=== PATIENT | female | born 1995 | race Caucasian/White ===

== ENCOUNTER 2019-05-02 22:04 | Emergency (ER) | payer OTHER ==
[~2019-05-02] VITALS: Ht 167.6 cm; Wt 67.1 kg
--- NOTE | 2019-05-02 22:19 | NUR ---
BENJI SANDERS at bedside for MSE.
--- NOTE | 2019-05-02 22:19 | NUR ---
PATIENT ARRIVED AT THE ER WITH C/O INTERMITTENT LLQ RADIATING TO RUQ ABDOMINAL PAIN X1 WEEK WITH NAUSEA AND DIARRHEA 2 DAYS AGO. DENIES ANY VOMITTING. PATIENT WITH HISTORY OF OVARIAN CYST, LOCATION UNKNOWN. PATIENT AAOX4. NAD. NO CARDIOVASCULAR CONCERN. BED ON LOCK POSITION. FALL PRECAUTION PER PROTOCOL.
[2019-05-02] MEDS ORDERED: ONDANSETRON 4 MG/2 ML VIAL ONE (22:30)
[2019-05-02] MEDS ORDERED: IV NORMAL SALINE 1000 ML BAG IV ONE (22:30)
[2019-05-02] MEDS ORDERED: ONDANSETRON 4 MG/2 ML VIAL IV ONE (22:30)
[2019-05-02] MEDS ORDERED: HYDROMORPHONE 1 MG/1 ML DISP.SYRIN IV ONE ×2 (22:30→23:30)
[2019-05-02] MEDS ORDERED: HYDROMORPHONE 1 MG/1 ML DISP.SYRIN ONE ×2 (22:30→23:39)
[2019-05-02 22:44] LABS: BASOPHILS # (AUTO) 0.1 K/uL (0.0-8.0); BASOPHILS % (AUTO) 0.9 % (0.0-2.0); EOSINOPHILS # (AUTO) 0.2 K/uL (0.0-0.7); EOSINOPHILS % (AUTO) 2.4 % (0.0-7.0); HEMATOCRIT 41.2 % (31.2-41.9); HEMOGLOBIN 13.5 g/dL (10.9-14.3); LYMPHOCYTES # (AUTO) 2.7 K/uL (20.0-40.0); LYMPHOCYTES % (AUTO) 39.7 % (20.5-51.5); MEAN CORPUSCULAR HEMOGLOBIN 28.4 uug (24.7-32.8); MEAN CORPUSCULAR HGB CONC 33 g/dL (32.3-35.6); MEAN CORPUSCULAR VOLUME 86.8 fL (75.5-95.3); MONOCYTES # (AUTO) 0.5 K/uL (2.0-10.0); MONOCYTES % (AUTO) 8.2 % (0.0-11.0); NEUTROPHILS # (AUTO) 3.3 K/uL (1.8-8.9); NEUTROPHILS % (AUTO) 48.8 % (38.5-71.5); PLATELET COUNT (AUTO) 234 K/uL (179-408); RED BLOOD CELL COUNT(AUTO) 4.74 MIL/uL (3.63-4.92); WHITE BLOOD COUNT (AUTO) 6.7 K/uL (3.8-11.8)
[2019-05-02 22:45] LABS: *BILIRUBIN,URIN NEGATIVE (NEGATIVE); *BLOOD, URINE NEGATIVE (NEGATIVE); *COLOR,URINE YELLOW (YELLOW); *KETONES,URINE TRACE (NEGATIVE); *UROBILINOGEN,URINE 0.2 E.U./dl (NORMAL); LEUKOCYTE ESTERASE ,URINE 1+ (NEGATIVE); NITRITE, URINE NEGATIVE (NEGATIVE); PH,URINE 5.5 (5.0-8.0); UGLUCOSE NEGATIVE (NEGATIVE)
[2019-05-02 22:48] LABS: *CLARITY,URINE HAZY (CLEAR)
[2019-05-02 22:54] LABS: BILIRUBIN,DIRECT 0.1 mg/dL (0.0-0.2); BILIRUBIN,TOTAL 0.5 mg/dL (0.2-1.0); POTASSIUM 4.1 mmol/L (3.5-5.1); TOTAL PROTEIN, SERUM 8.3 g/dL (6.4-8.2)
[2019-05-02 22:58] LABS: RBC,URINE 0-3 /HPF (0-3)
[2019-05-02 22:59] LABS: BACTERIA,URINE MODERATE /HPF (NONE SEEN)
[2019-05-02 23:00] LABS: SQUAMOUS EPITHELIAL CELL,UR FEW /HPF (NONE SEEN)
[2019-05-02] MEDS ORDERED: NITROFURANTOIN/NITROFURAN MAC 100 MG CAPSULE PO ONE (23:30)
[2019-05-02] MEDS ORDERED: NITROFURANTOIN/NITROFURAN MAC 100 MG CAPSULE ONE (23:39)
--- NOTE | 2019-05-02 23:49 | NUR ---
Back to ER from CT.
--- NOTE | 2019-05-03 00:21 | NUR ---
PATIENT AAOX4. IN NO ACUTE DISTRESS. PAIN ON ABDOMINAL AREA TOLERABLE AT THIS TIME PER PATIENT. DENIES ANY NAUSEA. CONTINUE TO MONITOR.
--- NOTE | 2019-05-03 00:26 | NUR ---
BENJI SANDERS AT BEDSIDE.
--- NOTE | 2019-05-03 00:26 | NUR ---
TELEPHONE CALL TO [facility], SPOKE TO BRODIE TO FOLLOW UP ON CT RESULT.
[2019-05-03 00:43] VITALS: BP 100/76
--- NOTE | 2019-05-03 00:45 | NUR ---
Patient discharged to home in stable conditon. Written and verbal after care instructions given. Patient verbalizes understanding of instructions. IV discontinued. Name tag removed. Patient ambulated out of ER with steady gait. All belongings with patient.
== END 2019-05-03 00:46 | disposition home or self-care (01) ==
LOC: ER 22:07
DX: R10.2 Pelvic and perineal pain (principal); R10.32 Left lower quadrant pain
CPT/HCPCS: 36415; 74176; 76856; 80048; 80076; 81000; 81001; 83690; 84702; 85025; 87086; 96374; 96375; 96376; 99284; J1170 ×2; J2405; A4663; J7030

== ENCOUNTER 2021-01-20 22:35 | Emergency (ER) | payer BC ==
[~2021-01-20] VITALS: Ht 167.6 cm; Wt 65.8 kg
[2021-01-20 23:00] LABS: *BILIRUBIN,URIN NEGATIVE (NEGATIVE); *BLOOD, URINE 2+ (NEGATIVE); *CLARITY,URINE CLEAR (CLEAR); *COLOR,URINE YELLOW (YELLOW); *KETONES,URINE NEGATIVE (NEGATIVE); *UROBILINOGEN,URINE 0.2 E.U./dl (NORMAL); LEUKOCYTE ESTERASE ,URINE NEGATIVE (NEGATIVE); NITRITE, URINE NEGATIVE (NEGATIVE); PH,URINE 6.5 (5.0-8.0); UGLUCOSE NEGATIVE (NEGATIVE)
[2021-01-20 23:08] LABS: BACTERIA,URINE FEW /HPF (NONE SEEN); SQUAMOUS EPITHELIAL CELL,UR MODERATE /HPF (NONE SEEN); WBC,URINE 0-3 /HPF (0-3)
--- NOTE | 2021-01-20 23:08 | NUR ---
BENJI SANDERS at bedside with Yovani MARIN for Pelvic Exam.
[2021-01-20 23:09] LABS: *URINE HCG, QUAL NEGATIVE (NEGATIVE)
--- NOTE | 2021-01-20 23:10 | NUR ---
Radiology notified of US need for patient.
--- NOTE | 2021-01-20 23:55 | NUR ---
US at bedside
[2021-01-21 00:32] VITALS: BP 124/67
--- NOTE | 2021-01-21 00:32 | NUR ---
Patient discharged to home in stable condition. Written and verbal after care instructions given. Patient verbalizes understanding of instructions. Stressed follow up or return to ER for worsening s/s. Ambulated from ER with stable gait. All belongings with patient.
== END 2021-01-21 00:35 | disposition home or self-care (01) ==
LOC: ER 22:37
DX: R10.2 Pelvic and perineal pain (principal); R10.32 Left lower quadrant pain; N93.9 Abnormal uterine and vaginal bleeding, unspecified
CPT/HCPCS: 76770; 84703